=== PATIENT | male | born 1945 | race Caucasian/White ===

== ENCOUNTER 2017-04-19 18:34 | Emergency (ER) | payer BC, OTHER ==
[~2017-04-19] VITALS: Ht 175.3 cm; Wt 105.3 kg
[2017-04-19 19:09] LABS: HEMATOCRIT 44.9 % (38.0-50.0); HEMOGLOBIN 15.5 G/DL (12.5-16.6); MCH 29.6 PG (29.0-34.0); MCHC 34.5 G/DL (30.0-36.0); MCV 85.7 FL (86-99); PLATELET COUNT 225 K/uL (156-360); RBC DIS.WIDTH-CV 13.1 % (11.8-14.6); RED BLOOD COUNT 5.24 M/uL (4.00-5.50); WHITE BLOOD COUNT 6.3 K/uL (4.1-10.2)
[2017-04-19 19:21] LABS: APPEARANCE CLEAR ((CLEAR)); BILIRUBIN NEGATIVE; BLOOD NEGATIVE; COLOR YELLOW ((YELLOW)); GLUCOSE (STRIP) NEGATIVE; KETONES NEGATIVE; LEUKOCYTES NEGATIVE; NITRITE NEGATIVE; PROTEIN (STRIP) NEGATIVE; SPECIFIC GRAVITY 1.016 (1.000-1.030); UCUL ADDED? NO; UROBILINOGEN 0.2 MG/DL (0.2-1.0)
[2017-04-19 19:27] LABS: ALBUMIN 4.1 g/dL (3.2-4.8); CHLORIDE 104 mEq/L (99-109)
[2017-04-19 19:28] LABS: POTASSIUM 3.9 mEq/L (3.7-5.4); SODIUM 139 mEq/L (136-147)
[2017-04-19 19:30] LABS: GLUCOSE 89 mg/dL (70-99); TOTAL PROTEIN 6.6 g/dL (6.4-8.3)
[2017-04-19 19:32] LABS: TOTAL BILIRUBIN 0.5 mg/dL (0.0-1.0)
[2017-04-19 19:33] LABS: ALKALINE PHOSPHATASE 98 IU/L (3-129)
[2017-04-19 19:35] LABS: AST (GOT) 26 IU/L (2-34); UREA NITROGEN (BUN) 17 mg/dL (9-23)
[2017-04-19 19:36] LABS: ALT (GPT) 33 IU/L (3-49)
[2017-04-19 19:48] LABS: GFR ESTIMATE (CALCULATED) > 59 mL/min/ (58.99-99999)
[2017-04-19 20:41] VITALS: BP 182/100
== END 2017-04-19 20:45 | disposition home or self-care (01) ==
LOC: EME 18:34
DX: R10.30 Lower abdominal pain, unspecified (principal); I10 Essential (primary) hypertension; C17.0 Malignant neoplasm of duodenum; K57.30 Diverticulosis of large intestine without perforation or abscess without bleeding; N40.0 Benign prostatic hyperplasia without lower urinary tract symptoms
CPT/HCPCS: 74177; 80053; 81003; 85027; 93005; 99281; 99284; J7030